=== PATIENT | female | born 1945 | race Hispanic/Latino ===

== ENCOUNTER → 2017-10-27 | Outpatient (CLI) | payer MEDICARE ==
[~2017-10-27] MED LIST: REGADENOSON 0.4 MG/5 ML PF SYG IVP SCH
== END | disposition home or self-care (01) ==
LOC: SHCH 08:55
PROVIDERS: ATTEND Internal Medicine Cardiovascular Disease
DX: I20.9 Angina pectoris, unspecified (principal)
CPT/HCPCS: 78452; 93017; 96374; A9500 ×2; J2785

== ENCOUNTER → 2020-09-18 | Outpatient (CLI) | payer MEDICARE | END | disposition home or self-care (01) | LOC: DAH 10:00 → EDSTATUS 09-23 07:50 | PROVIDERS: ATTEND Internal Medicine | DX: Z01.818 Encounter for other preprocedural examination (principal); Z20.822 Contact with and (suspected) exposure to COVID-19; R10.11 Right upper quadrant pain; R14.0 Abdominal distension (gaseous); R93.2 Abnormal findings on diagnostic imaging of liver and biliary tract | CPT/HCPCS: C9803; U0003 ==